=== PATIENT | female | born 1945 | race Two or more races ===

== ENCOUNTER 2018-07-12 10:14 | Emergency (ER) | payer OTHER ==
[~2018-07-12] VITALS: Ht 162.6 cm; Wt 66.2 kg
[~2018-07-12 10:14] MED LIST: DIOVAN40 MG PO
[2018-07-12] MEDS ORDERED: COZAAR50 MG PO (10:45)
[2018-07-12] MEDS ORDERED: JANUVIA100 MG PO (10:45)
[2018-07-12] MEDS ORDERED: TUSSI PRES-B L120 M1 PO (13:34)
[2018-07-12] MEDS ORDERED: XANAX0.25 MG PO (13:34)
== END 2018-07-12 13:40 | disposition home or self-care (01) ==
LOC: ER 10:14
DX: B34.9 Viral infection, unspecified (principal)

== ENCOUNTER 2021-01-05 08:03 | Outpatient (CLI) | payer OTHER ==
[~2021-01-05 08:03] MED LIST changes: +COZAAR50 MG PO; +JANUVIA100 MG PO; +TUSSI PRES-B L120 M1 PO; +XANAX0.25 MG PO
== END 2021-01-05 08:09 | disposition home or self-care (01) ==
LOC: LAB 08:03
PROVIDERS: ATTEND Internal Medicine
DX: I11.9 Hypertensive heart disease without heart failure (principal); E78.89 Other lipoprotein metabolism disorders; E11.9 Type 2 diabetes mellitus without complications; N39.8 Other specified disorders of urinary system; E06.5 Other chronic thyroiditis; M15.8 Other polyosteoarthritis

== ENCOUNTER 2024-08-25 07:31 | Outpatient (CLI) | payer OTHER | END 2024-08-25 07:40 | disposition home or self-care (01) | LOC: TOM 07:31 | PROVIDERS: ATTEND Internal Medicine | DX: R10.84 Generalized abdominal pain (principal) ==

== ENCOUNTER 2025-03-06 07:20 | Outpatient (CLI) | payer OTHER | END 2025-03-06 07:23 | disposition home or self-care (01) | LOC: RAD 07:20 | PROVIDERS: ATTEND Internal Medicine | DX: I11.9 Hypertensive heart disease without heart failure (principal) ==